=== PATIENT | female | born 1950 | race Caucasian/White ===

== ENCOUNTER 2017-05-31 09:59 | Day surgery (SDC) | payer MEDICARE, OTHER ==
[~2017-05-31 09:59] MED LIST: RINGERS SOLUTION,LACTATED 1,000 ML IV PRN; ceFAZolin SODIUM 1 GM VIAL IV PRN
[2017-05-31] MEDS ORDERED: RINGERS SOLUTION,LACTATED 1,000 ML IV ONE (10:45)
[2017-05-31] MEDS ORDERED: BUPIVACAINE HCL 50 ML VIAL IJ ONE ×2 (12:20)
--- NOTE | 2017-05-31 13:10 | OR ---
Operative Report - Dictated Report Narrative: Date: 05/31/2017 Surgeon: Pro Navarro M.D. Director Of Epidemiology: Agapito Moulton PA-C Preoperative diagnosis: Painful retained implants left ankle Postoperative diagnosis: Painful retained implants left ankle Operation: 1 - Removal of deep implants left medial and lateral malleolus 2 - Intraoperative interpretation of x-rays Retained implants: None Anesthesia: General plus local Tourniquet time: 33 Minutes at 250 mmHg Estimated blood loss: Minimal Drains: None Specimen: Implants for return the patient Complications: None Indications: Mrs. Christie is a 66 -year-old female who previously underwent open reduction internal fixation of left bimalleolar ankle fracture and subsequently developed pain related to the implants. They've gone on to heal the fracture however had notable symptoms related to the implants and wished to have these removed.. They were seen in the clinic and discuss the options for treatment. She wished to proceed with surgical removal of deep implants. The risks and benefits alternatives were discussed. Risks of , blood clots, bleeding, infection, nerve/tendon/blood vessel injury, persistent pain, wound complications, and need for additional procedures were discussed. Consent was obtained in the clinic. Procedure: After marking the correct extremity in the preoperative holding area, the patient was taken to the operating room. A timeout was performed. IV antibiotics consisting of Ancef were administered. Adequate anesthesia was placed. The extremity was then prepped and draped in standard sterile fashion. Utilizing the prior incision, sharp dissection was carried through the skin after exsanguinating extremity and inflating tourniquet. Careful dissection was carried down to the implants. The implants were then removed without complication. There did not appear to be any complications related to the fracture nor any signs of infection. Once all the implants were removed, the wound was thoroughly irrigated. A prominent bone was removed and the soft tissues were closed with 3-0 and 4-0 nylon. Final images were obtained with mini C-arm. Sterile dressings of Xeroform, 4 x 4, soft roll, Coban. 0.5% Marcaine without epinephrine was infused into the skin edges prior to placing dressings. All sponge, needle, sharp, and instrument counts were correct prior to closing the wound. The patient was awoken and transferred to the postanesthesia care in stable condition.
[2017-05-31] MEDS ORDERED: RINGERS SOLUTION,LACTATED 1,000 ML IV PRN (13:51)
[2017-05-31] MEDS ORDERED: ACETAMINOPHEN 500 MG TABLET PO PRN (13:53)
[2017-05-31 15:01] VITALS: BP 122/54
== END 2017-05-31 10:00 | disposition home or self-care (01) ==
LOC: AMB 09:59
PROVIDERS: ATTEND Orthopaedic Surgery
PROC: 0QPK04Z Removal of Internal Fixation Device from Left Fibula, Open Approach (ICD-10-PCS; principal; 2017-05-31 13:45)
DX: T84.84XA Pain due to internal orthopedic prosthetic devices, implants and grafts, initial encounter (principal); I11.0 Hypertensive heart disease with heart failure; I50.9 Heart failure, unspecified; I48.91 Unspecified atrial fibrillation; I25.10 Atherosclerotic heart disease of native coronary artery without angina pectoris; E03.9 Hypothyroidism, unspecified; J45.20 Mild intermittent asthma, uncomplicated; F41.1 Generalized anxiety disorder; Z87.891 Personal history of nicotine dependence; Z68.27 Body mass index [BMI] 27.0-27.9, adult

== ENCOUNTER 2018-12-05 09:06 | Observation (INO) ==
[2018-12-05 09:28] LABS: Hematocrit 36.6 % (37.0-47.0); Hemoglobin 11.8 gm/dL (12.5-16.0); Mean Cell Volume 96.3 fl (78-100); Mean Corpuscular Hemoglobin 31.1 pg (27-31); Mean Corpuscular Hgb Conc 32.2 g/dl (32-36); Mean Platelet Volume 9.7 fl (8-12.5); Neutrophil # 5.4 K/mm3 (1.3-6.0); Neutrophil % 75.2 % (42-75.0); Platelet Count 224 K/mm3 (150-450); Red Cell Distribution Width 13.4 % (11.5-14.0); White Blood Count 7.2 K/mm3 (4.0-10.5)
[2018-12-05 09:36] LABS: INR 1.85 INR (0.90-1.10); Partial Thrombolplastin Time 27.5 Seconds (24-32); Prothrombin Time (Patient) 18.6 Seconds (9.0-11.0)
[2018-12-05 09:44] LABS: Troponin I 0.032 ng/mL (0.00-0.10)
[2018-12-05 09:46] LABS: Anion Gap 16.8 mmol/L (6.8-13.8); BUN/Creatinine Ratio 31.4 (9.0-21.6); Bilirubin, Total 0.8 mg/dL (0.0-1.1); Ca. Corrected For Albumin 8.6 mg/dL (8.4-10.2); Calcium * 8.9 mg/dL (7.9-10.9); Carbon Dioxide 23.7 mmol/L (24-32.6); Potassium 4.5 mmol/L (3.4-4.6); Total Protein 7.5 gm/dL (6.2-8.2)
[2018-12-05] MEDS ORDERED: FUROSEMIDE 10 MG/ML VIAL IV ONE (09:55)
--- NOTE | 2018-12-05 10:01 | ERNOTE ---
<KayleePeg arellano - Last Filed: 12/05/18 10:27> Chest Pain/Cardiac HPI Date of Service: 12/05/18 Chief Complaint: Chest Pain Time Seen by Provider: 12/05/18 09:50 Source: patient Exam Limitations: clinical condition Immunizations: IMMUNIZATION HX Immunizations Up to Date No History of Influenza Vaccine Yes Hx Pneumococcal Vaccination No Allergies/Adverse Reactions: Allergies caffeine Adverse Reaction (Mild, Verified 12/05/18 09:18) ANXIETY iodine Adverse Reaction (Mild, Verified 12/05/18 09:18) BURNING AND BLISTERING OF SKIN cat dander Adverse Reaction (Unknown, Verified 12/05/18 09:18) asthma Home Medications: HOME MEDICATIONS Albuterol Sulfate [Ventolin HFA] 2 puff INHALATION Q6H PRN 10/02/16 [Last Taken Unknown] Pravastatin Sodium [Pravachol] 80 mg PO HS 10/02/16 [Last Taken Unknown] Acetaminophen [Tylenol] 500 mg PO PRN PRN 05/27/17 [Last Taken Unknown] Albuterol Sulfate/Ipratropium [Duoneb 2.5-0.5MG/3ML Soln] 3 ml INHALATION QID 05/27/17 [Last Taken Unknown] Amiodarone HCl [Cordarone] 200 mg PO MOTUWETHFR 05/27/17 [Last Taken Unknown] Cholecalciferol [Vitamin D] 5,000 unit PO DAILY 05/27/17 [Last Taken Unknown] levothyroxine 25 mcg tablet 25 mcg PO DAILY #30 tab 06/04/18 [Last Taken Unknown] lisinopril 10 mg tablet 10 mg PO BID #60 tab 06/04/18 [Last Taken Unknown] omeprazole 20 mg capsule,delayed release 40 mg PO DAILY #60 cap 07/24/18 [Last Taken Unknown] alprazolam 1 mg tablet 1 mg PO TID PRN #30 tab 10/08/18 [Last Taken Unknown] furosemide 40 mg tablet 40 mg PO DAILY 11/18/18 [Last Taken Unknown] warfarin 1 mg tablet 2 mg PO .QMF #90 tab 11/27/18 [Last Taken Unknown] warfarin 1 mg tablet 3 mg PO .TuWThSASun #90 tab 11/27/18 [Last Taken Unknown] Narrative: 68 year old female presenting with dyspnea, she does have a history of CHF and A Fib she is on Amiodorone. She is presenting with dyspnea. She is due to have mitral valve replacement in [place]. She had a recent Angio in [place] that was negative. She is on coumadin. She has a home blood pressure monitor that read a fib. She does have a history of CHF. Review of Systems - Review of Systems Constitutional: Present: See HPI EYE: Present: no symptoms reported ENT: Present: no symptoms reported Respiratory: Present: shortness of breath Cardiology: Present: chest pain, palpitations Gastrointestinal/Abdominal: Present: no symptoms reported Genitourinary: Present: no symptoms reported Musculoskeletal: Present: no symptoms reported Skin: Present: no symptoms reported Neurological: Present: no symptoms reported Endocrine: Present: no symptoms reported Hematologic/Lymphatic: Present: no symptoms reported Psych: Present: no symptoms reported Medical History (Last Reviewed 12/05/18 @ 09:58 by Peg Page MD) Hypothyroidism (Chronic) Onset Date: ~07/25/16 Hypertension (Chronic) Onset Date: Unknown Congestive heart failure (CHF) (Chronic) Onset Date: Unknown Congenital heart disease (Chronic) Onset Date: Unknown CAD (coronary artery disease) (Chronic) Onset Date: Unknown Asthma (Chronic) Onset Date: ~05/18/13 Anxiety disorder (Chronic) Onset Date: ~06/30/13 Afib (Chronic) Onset Date: ~05/14/13 history S/P AV canal with split MV repair at age 14- Heart failure symptoms May 2013 Fracture, fibula Onset Date: ~09/2016 GI bleed Onset Date: ~09/08/16 Malleolar fracture Onset Date: ~09/2016 Mitral valve stenosis Onset Date: Unknown Myocardial infarction Onset Date: Unknown Surgical History: Surgical History (Last Reviewed 12/05/18 @ 09:58 by Peg Page MD) History of ankle surgery Onset Date: ~10/03/16 Dr Navarro: ORIF left medial malleolus and fibula fx, closed reduction posterior malleolus ankle fx History of cardioversion Onset Date: ~05/18/13 History of endometrial ablation Onset Date: ~1995 History of esophagogastroduodenoscopy (EGD) Onset Date: ~09/09/16 Bagan- clotest negative. Acutely ulcerated and bleeding hyperplastic polyp History of open heart surgery Onset Date: ~04/1965 History of total hysterectomy with bilateral salpingo-oophorectomy (BSO) Onset Date: ~1995 Hx laparoscopic cholecystectomy Onset Date: ~1995 Hx of carpal tunnel repair Onset Date: ~1995 Hx of dilation and curettage Onset Date: ~1980 1977 & 1980 Hx of eye surgery Onset Date: ~1958 Hx of mitral valve repair Onset Date: ~04/1965 Hx of tubal ligation Onset Date: ~1981 Family History: Family History (Last Reviewed 12/05/18 @ 09:58 by Peg Page MD) Father Cancer esophageal Mother Cancer adenocarcinoma Social History: Preferred Language Yi Smoking Status Never smoker Abuse History No History of abuse Psych History Hx of Anxiety,Currently on Meds Alcohol Use none (Last Updated 11/18/18 @ 11:31 by Marti White MD) No Social History Section defined Physical Exam - Physical Exam General Appearance: Present: wd/wn, alert, no apparent distress Head Exam: Present: normal inspection, no evidence of injury Eye Exam: Normal inspection: bilateral, PERRL: bilateral, EOMI: bilateral Ears, Nose, Throat: Present: normal ENT inspection, normal pharynx Neck: Present: normal inspection, nontender Respiratory: Present: no respiratory distress, no accessory muscle use, decreased breath sounds, crackles, rales Cardiovascular/Chest: Present: irregularly irregular Peripheral Pulses: N=norm/S=strong/W=weak/B=bound/A=absent: Carotid (R): Normal, Carotid (L): Normal, Radial (R): Normal Gastrointestinal/Abdominal: Present: normal bowel sounds, nontender, nondistended, soft, no organomegaly Back Exam: Present: normal inspection, normal range of motion, no CVA tenderness, no vertebral tenderness Extremity Exam: Present: normal inspection, non-tender, normal range of motion, no edema Neurological Exam: Present: alert, oriented, normal mood/affect, no motor/sensory deficits Skin Exam: Present: normal color, warm/dry Lymphatic Exam: Present: no adenopathy Progress - Results and Orders Patient's Lab Results:: I have reviewed the patient's lab results. - Vital Signs Patient's Vital Signs:: I have reviewed the patient's vital signs. Vital Signs: Vital Signs 12/05/18 09:07 12/05/18 09:17 Temperature 36.1 C Pulse Rate 96 99 Respiratory Rate 13 O2 Sat by Pulse Oximetry 99 - EKG EKG #1 EKG: atrial fibrillation - 108, other - X-Ray X-Ray #1 X-Ray: chest - CHF - Progress/Reassessment Chief Complaint: Chest Pain Progress:: Improved - Diuresed with Lasix - Transfer of Care Physician Sign Out: Peg Page Receiving Physician: Dameon Rogers Expected Disposition: Admit - awaiting Dr. Bey Departure Clinical Impression: Congestive heart failure (CHF) - Departure Disposition: Still a patient Condition: Fair <Dameon Rogers - Last Filed: 12/05/18 11:02> Chest Pain/Cardiac HPI Immunizations: IMMUNIZATION HX Immunizations Up to Date No History of Influenza Vaccine Yes Hx Pneumococcal Vaccination No Medical History (Last Reviewed 12/05/18 @ 09:58 by Peg Page MD) Hypothyroidism (Chronic) Onset Date: ~07/25/16 Hypertension (Chronic) Onset Date: Unknown Congestive heart failure (CHF) (Chronic) Onset Date: Unknown Congenital heart disease (Chronic) Onset Date: Unknown CAD (coronary artery disease) (Chronic) Onset Date: Unknown Asthma (Chronic) Onset Date: ~05/18/13 Anxiety disorder (Chronic) Onset Date: ~06/30/13 Afib (Chronic) Onset Date: ~05/14/13 history S/P AV canal with split MV repair at age 14- Heart failure symptoms May 2013 Fracture, fibula Onset Date: ~09/2016 GI bleed Onset Date: ~09/08/16 Malleolar fracture Onset Date: ~09/2016 Mitral valve stenosis Onset Date: Unknown Myocardial infarction Onset Date: Unknown Surgical History: Surgical History (Last Reviewed 12/05/18 @ 09:58 by Peg Page MD) History of ankle surgery Onset Date: ~10/03/16 Dr Navarro: ORIF left medial malleolus and fibula fx, closed reduction posterior malleolus ankle fx History of cardioversion Onset Date: ~05/18/13 History of endometrial ablation Onset Date: ~1995 History of esophagogastroduodenoscopy (EGD) Onset Date: ~09/09/16 Bagan- clotest negative. Acutely ulcerated and bleeding hyperplastic polyp History of open heart surgery Onset Date: ~04/1965 History of total hysterectomy with bilateral salpingo-oophorectomy (BSO) Onset Date: ~1995 Hx laparoscopic cholecystectomy Onset Date: ~1995 Hx of carpal tunnel repair Onset Date: ~1995 Hx of dilation and curettage Onset Date: ~1980 1977 & 1980 Hx of eye surgery Onset Date: ~1958 Hx of mitral valve repair Onset Date: ~04/1965 Hx of tubal ligation Onset Date: ~1981 Family History: Family History (Last Reviewed 12/05/18 @ 09:58 by Peg Page MD) Father Cancer esophageal Mother Cancer adenocarcinoma Social History: Preferred Language Yi Smoking Status Never smoker Abuse History No History of abuse Psych History Hx of Anxiety,Currently on Meds Alcohol Use none (Last Updated 11/18/18 @ 11:31 by Marti White MD) No Social History Section defined Progress - Date and Time Seen: Date and Time: 12/05/18 11:02 I took over the patient from Dr. Page about 10:30 AM. The workup had been completed and he was waiting for a call from Dr. Bey, who is busy in the critical care unit. I spoke with Dr. Bey and he accepted the patient. The x-ray and labs were reviewed. I talked with the patient and she is sitting comfortably in a wheelchair after having returned from the bathroom. She had no questions for me. - Vital Signs Vital Signs: Vital Signs 12/05/18 09:07 12/05/18 09:17 12/05/18 09:45 Temperature 36.1 C Pulse Rate 96 99 108 H Respiratory Rate 13 13 Blood Pressure 113/76 96/54 O2 Sat by Pulse Oximetry 99 96 12/05/18 10:05 12/05/18 10:11 12/05/18 10:20 Temperature Pulse Rate 89 96 95 Respiratory Rate 17 17 Blood Pressure 95/52 96/52 93/63 O2 Sat by Pulse Oximetry 97 95 12/05/18 10:46 Temperature Pulse Rate 97 Respiratory Rate 12 Blood Pressure 103/54 O2 Sat by Pulse Oximetry 96
[2018-12-05] MEDS ORDERED: LISINOPRIL 10 MG TABLET PO ONE (22:48)
[2018-12-05] MEDS ORDERED: AMIODARONE HCL 200 MG TABLET PO ONE (22:49)
[2018-12-05] MEDS ORDERED: ROSUVASTATIN CALCIUM 10 MG TABLET PO ONE (22:51)
[2018-12-05] MEDS ORDERED: WARFARIN SODIUM 3 MG TABLET PO ONE (22:53)
[2018-12-05] MEDS ORDERED: WARFARIN SODIUM 1 MG TABLET ONE (23:13)
[2018-12-06] MEDS ORDERED: FUROSEMIDE 10 MG/ML VIAL IV ONE (06:30)
[2018-12-06 07:44] LABS: Albumin * 3.6 gm/dl (3.4-5.0); Anion Gap 15.9 mmol/L (6.8-13.8); BUN/Creatinine Ratio 32.7 (9.0-21.6); Bilirubin, Total 0.7 mg/dL (0.0-1.1); Potassium 4.9 mmol/L (3.4-4.6); Total Protein 6.9 gm/dL (6.2-8.2)
--- NOTE | 2018-12-06 10:22 | HP ---
Chief Complaint - Chief Complaint Date of Service: 12/05/18 Time of Service: 16:00 Chief Complaint: Shortness of breath History of Present Illness: Ellie is a 68 yo female with severe aortic stenosis, atrial fibrillation, and chronic diastolic CHF that presented to the [facility] ER with shortness of breath. She reports she has been sick with bronchitis recent and has not be as active. She also admits to occasionally eating more salt than she should. She does not weight herself daily. She denies any recent weight change. She reports the only medication change has been the recent adjustment in her coumadin. She denies chest pain. Medical History (Last Updated 12/05/18 @ 11:33 by Leona Hilton RN) Hypothyroidism (Chronic) Onset Date: ~07/25/16 Hypertension (Chronic) Onset Date: Unknown Congestive heart failure (CHF) (Chronic) Onset Date: Unknown Congenital heart disease (Chronic) Onset Date: Unknown CAD (coronary artery disease) (Chronic) Onset Date: Unknown Asthma (Chronic) Onset Date: ~05/18/13 Anxiety disorder (Chronic) Onset Date: ~06/30/13 Afib (Chronic) Onset Date: ~05/14/13 history S/P AV canal with split MV repair at age 14- Heart failure symptoms May 2013 Fracture, fibula Onset Date: ~09/2016 GI bleed Onset Date: ~09/08/16 Malleolar fracture Onset Date: ~09/2016 Mitral valve stenosis Onset Date: Unknown Surgical History: Surgical History (Last Reviewed 12/05/18 @ 11:34 by Leona Hilton RN) History of ankle surgery Onset Date: ~10/03/16 Dr Navarro: ORIF left medial malleolus and fibula fx, closed reduction posterior malleolus ankle fx History of cardioversion Onset Date: ~05/18/13 History of endometrial ablation Onset Date: ~1995 History of esophagogastroduodenoscopy (EGD) Onset Date: ~09/09/16 Bagan- clotest negative. Acutely ulcerated and bleeding hyperplastic polyp History of open heart surgery Onset Date: ~04/1965 History of total hysterectomy with bilateral salpingo-oophorectomy (BSO) Onset Date: ~1995 Hx laparoscopic cholecystectomy Onset Date: ~1995 Hx of carpal tunnel repair Onset Date: ~1995 Hx of dilation and curettage Onset Date: ~1980 1977 & 1980 Hx of eye surgery Onset Date: ~1958 Hx of mitral valve repair Onset Date: ~04/1965 Hx of tubal ligation Onset Date: ~1981 Family History: Family History (Last Reviewed 12/05/18 @ 11:34 by Leona Hilton RN) Father Cancer esophageal Mother Cancer adenocarcinoma Social History: Patient Lives/Resources with son Utilized Occupation fish and wildlife technician Preferred Language Portuguese Do you have any amish or Yes: Amish cultural preference? Smoking Status Never smoker Have you smoked in the past 12 No months Abuse History No History of abuse Psych History Hx of Anxiety,Currently on Meds Alcohol Use none (Last Updated 11/18/18 @ 11:31 by Marti White MD) No Social History Section defined Review Of Systems (GEN) - Review of Systems Generalized/Overall Review: Present: Weakness, Fatigue. Absent: Chills, Fever EENTM: Present: No Symptoms Reported Respiratory: Present: Shortness of Breath. Absent: Cough, Wheezing Cardiac: Present: Edema. Absent: Chest Pain, Palpitations, Syncope Abdominal: Absent: Nausea, Vomiting, Abdominal Pain Genitourinary: Present: No Symptoms Reported Musculoskeletal: Present: No Symptoms Reported Neurological: Present: No Symptoms Reported Skin: Present: No Symptoms Reported Endocrine: Present: No Symptoms Reported Immunizations: IMMUNIZATION HX Immunizations Up to Date No History of Influenza Vaccine Yes Hx Pneumococcal Vaccination No Allergies/Adverse Reactions: Allergies Allergy/AdvReac Type Severity Reaction Status Date / Time caffeine AdvReac Mild ANXIETY Verified 12/05/18 11:35 iodine AdvReac Mild BURNING Verified 12/05/18 11:35 AND BLISTERING OF SKIN cat dander AdvReac Unknown asthma Verified 12/05/18 11:35 Home Medications: HOME MEDICATIONS Albuterol Sulfate [Ventolin HFA] 2 puff INHALATION Q6H PRN 10/02/16 [Last Taken Unknown] Pravastatin Sodium [Pravachol] 80 mg PO HS 10/02/16 [Last Taken Unknown] Acetaminophen [Tylenol] 500 mg PO Q4H PRN 05/27/17 [Last Taken Unknown] Albuterol Sulfate/Ipratropium [Duoneb 2.5-0.5MG/3ML Soln] 3 ml INHALATION QID PRN 05/27/17 [Last Taken Unknown] Amiodarone HCl [Cordarone] 200 mg PO MOTUWETHFR 05/27/17 [Last Taken Unknown] Cholecalciferol [Vitamin D] 2,000 unit PO DAILY 05/27/17 [Last Taken Unknown] levothyroxine 25 mcg tablet 25 mcg PO DAILY #30 tab 06/04/18 [Last Taken Unknown] lisinopril 10 mg tablet 10 mg PO BID #60 tab 06/04/18 [Last Taken Unknown] omeprazole 20 mg capsule,delayed release 40 mg PO DAILY #60 cap 07/24/18 [Last Taken Unknown] alprazolam 1 mg tablet 1 mg PO TID PRN #30 tab 10/08/18 [Last Taken Unknown] furosemide 40 mg tablet 40 mg PO DAILY 11/18/18 [Last Taken Unknown] Warfarin Sodium [Coumadin] 3 mg PO .SUMOWEFR 12/05/18 [Last Taken Unknown] Warfarin Sodium [Jantoven] 2 mg PO .TUTHSA 12/05/18 [Last Taken Unknown] Exam - Exam Vital Signs: Vital Signs - Last Taken Temp 36.4 C 12/06/18 07:34 Pulse 84 12/06/18 07:34 Resp 18 12/06/18 07:34 BP 89/56 L 12/06/18 07:34 Pulse Ox 98 12/06/18 07:34 Constitutional: Present: Alert, Oriented x3, Cooperative ENT Exam: Present: hearing grossly normal Eye Exam: bilateral eye: normal inspection Respiratory: Present: no respiratory distress, crackles Cardiovascular/Chest: Present: irregularly irregular Abdomen: Present: Normal bowel sounds, soft, nontender, nondistended Skin Exam: Present: normal color, warm/dry, no cyanosis Neurologic: Present: alert, normal mood/affect, oriented x 3 Appearance: Present: appropriate appearance, appropriate insight Eye contact: Present: cooperative, good eye contact, normal speech Thoughts: Present: normal thought pattern, no apparent hallucination Diagnostic Studies: Abnormal Lab Results 12/06/18 Range/Units 07:05 Potassium 4.9 H (3.4-4.6) mmol/L Anion Gap 15.9 H (6.8-13.8) mmol/L BUN 50 H (3-23) mg/dL Creatinine 1.53 H (0.4-1.4) mg/dL Est GFR (Non-Af Amer) 36 L (60-130) mL/min BUN/Creatinine Ratio 32.7 H (9.0-21.6) Random Glucose 139 H (70-110) mg/dL ALT 15 L (19-67) U/L Laboratory Results WBC 7.2 K/mm3 (4.0-10.5) 12/05/18 09:21 RBC 3.80 M/mm3 (4.2-5.4) L 12/05/18 09:21 Hgb 11.8 gm/dL (12.5-16.0) L 12/05/18 09:21 Hct 36.6 % (37.0-47.0) L 12/05/18 09:21 MCV 96.3 fl (78-100) 12/05/18 09:21 MCH 31.1 pg (27-31) H 12/05/18 09:21 MCHC 32.2 g/dl (32-36) 12/05/18 09:21 RDW 13.4 % (11.5-14.0) 12/05/18 09:21 Plt Count 224 K/mm3 (150-450) 12/05/18 09:21 MPV 9.7 fl (8-12.5) 12/05/18 09:21 Immature Gran % (Auto) 0.40 % (0.001-0.429) 12/05/18 09:21 Immature Gran # (Auto) 0.03 K/mm3 (0.000-0.0310) 12/05/18 09:21 Neutrophils % 75.2 % (42-75.0) H 12/05/18 09:21 Lymphocytes % 17.6 % (20-51) L 12/05/18 09:21 Monocytes % 6.1 % (0.0-9) 12/05/18 09:21 Eosinophils % 0.4 % (0.0-3.0) 12/05/18 09:21 Basophils % 0.3 % (0.0-1.0) 12/05/18 09:21 Nucleated RBC % 0.0 k/mm3 (0-1) 12/05/18 09:21 Neutrophils # 5.4 K/mm3 (1.3-6.0) 12/05/18 09:21 Lymphocytes # 1.27 k/mm3 (1.5-3.5) L 12/05/18 09:21 Monocytes # 0.4 k/mm3 (0.0-1.0) 12/05/18 09:21 Eosinophils # 0.0 k/mm3 (0.0-0.7) 12/05/18 09:21 Absolute Basophils 0.0 k/mm3 (0.0-0.1) 12/05/18 09:21 PT 18.6 Seconds (9.0-11.0) H 12/05/18 09:21 INR (Anticoag Therapy) 1.85 INR (0.90-1.10) H 12/05/18 09:21 PTT ([place]) 27.5 Seconds (24-32) 12/05/18 09:21 Sodium 136 mmol/L (132-142) 12/06/18 07:05 Plasma Sodium 137 mmol/L (130-142) 12/06/18 07:05 Potassium 4.9 mmol/L (3.4-4.6) H 12/06/18 07:05 Chloride 100 mmol/L (97-106) 12/06/18 07:05 Carbon Dioxide 25.0 mmol/L (24-32.6) 12/06/18 07:05 Anion Gap 15.9 mmol/L (6.8-13.8) H 12/06/18 07:05 BUN 50 mg/dL (3-23) H 12/06/18 07:05 Creatinine 1.53 mg/dL (0.4-1.4) H 12/06/18 07:05 Est GFR (Non-Af Amer) 36 mL/min (60-130) L 12/06/18 07:05 BUN/Creatinine Ratio 32.7 (9.0-21.6) H 12/06/18 07:05 Random Glucose 139 mg/dL (70-110) H 12/06/18 07:05 Calcium 9.0 mg/dL (7.9-10.9) 12/06/18 07:05 Calcium Adj for Albumin 9.0 mg/dL (8.4-10.2) 12/06/18 07:05 Total Bilirubin 0.7 mg/dL (0.0-1.1) 12/06/18 07:05 AST 22 U/L (0-48) 12/06/18 07:05 ALT 15 U/L (19-67) L 12/06/18 07:05 Alkaline Phosphatase 81 U/L (50-170) 12/06/18 07:05 Troponin I 0.034 ng/mL (0.00-0.10) 12/05/18 13:14 B-Natriuretic Peptide 9024 pg/mL (5-325) H 12/05/18 09:21 Total Protein 6.9 gm/dL (6.2-8.2) 12/06/18 07:05 Albumin 3.6 gm/dl (3.4-5.0) 12/06/18 07:05 Assessment/Plan - Narrative Narrative: Ellie will be admitted to observation for shortness of breath with acute on chronic diastolic CHF based on shortness of breath, lower extremity edema, and BNP of 9k. Will give IV lasix at 40mg and monitor response. There is no respiratory failure/hypoxia at this time. Anticipate home discharge tomorrow. - Assessment/Plan (1) Acute on chronic diastolic CHF (congestive heart failure) Problem: Acute (2) Atrial fibrillation Problem: Chronic
--- NOTE | 2018-12-06 10:47 | DS ---
(1) Acute on chronic diastolic CHF (congestive heart failure) Problem: Resolved (2) Atrial fibrillation Problem: Chronic Description of Stay: Ellie is a 68 yo female admitted to observation for shortness of breath that was felt to be from an exacerbation of her diastolic CHF. She was given IV lasix 40mg about 12 hours apart and diursed well. She felt better and ready for home discharge. I suspect that she had an exacerbation due to her recent bronchitis that had her activity decreased and her admission that she has been eating more salt than she should. I educated her on monitoring her weight daily. Her dose of 40mg appears to work for her but she also admits to not taking it if she will be out and about. I encouraged her to take this earlier or when she returns. She will be given enough lasix to use daily and she may occasionally take it twice a day, at least 6 hours apart if she is monitoring her weight and notices an increase. I do not believe she will use this twice a day often. She may follow up with her PCP and r&d engineer. Procedures Performed: none Results and Findings: Lab Pending Results 12/05/18 09:21: WBC 7.2, RBC 3.80 L, Hgb 11.8 L, Hct 36.6 L, MCV 96.3, MCH 31.1 H, MCHC 32.2, RDW 13.4, Plt Count 224, MPV 9.7, Immature Gran % (Auto) 0.40, Immature Gran # (Auto) 0.03, Neutrophils % 75.2 H, Lymphocytes % 17.6 L, Monocytes % 6.1, Eosinophils % 0.4, Basophils % 0.3, Nucleated RBC % 0.0, Neutrophils # 5.4, Lymphocytes # 1.27 L, Monocytes # 0.4, Eosinophils # 0.0, Absolute Basophils 0.0 12/05/18 09:21: PT 18.6 H, INR (Anticoag Therapy) 1.85 H, PTT (Pike) 27.5 12/05/18 09:21: Sodium 137, Plasma Sodium 138, Potassium 4.5, Chloride 101, Carbon Dioxide 23.7 L, Anion Gap 16.8 H, BUN 55 H D, Creatinine 1.75 H, Est GFR (Non-Af Amer) 31 L, BUN/Creatinine Ratio 31.4 H, Random Glucose 146 H, Calcium 8.9, Calcium Adj for Albumin 8.6, Total Bilirubin 0.8, AST 26, ALT 19, Alkaline Phosphatase 90, Troponin I 0.032, B-Natriuretic Peptide 9024 H, Total Protein 7.5, Albumin 4.0 12/05/18 13:14: Troponin I 0.034 12/06/18 07:05: Sodium 136, Plasma Sodium 137, Potassium 4.9 H, Chloride 100, Carbon Dioxide 25.0, Anion Gap 15.9 H, BUN 50 H, Creatinine 1.53 H, Est GFR (Non-Af Amer) 36 L, BUN/Creatinine Ratio 32.7 H, Random Glucose 139 H, Calcium 9.0, Calcium Adj for Albumin 9.0, Total Bilirubin 0.7, AST 22, ALT 15 L, Alkaline Phosphatase 81, Total Protein 6.9, Albumin 3.6 Discharge Location: Home Disposition: Home self-care Condition: Good Discharge Activity: Activity as tolerated Discharge Diet: Low salt Referrals: Marti White MD [Primary Care Provider] - One Week Lola Chow DO [Associate] - (Next available) Problem Oriented Discharge Instructions to Patient/Family: CHF Patient Instructions Additional Patient Instructions (free text): -Please make TCM appointment unless alf discharge. Thank you! Darlyn @ [phone]. Prescriptions (Any new or edited meds): Furosemide [Lasix] 40 mg PO BID PRN #45 tablet PRN Reason: edema/weight gain Complete Home Medications List: Complete Home Medication List: Albuterol Sulfate [Ventolin HFA] 2 puff INHALATION Q6H PRN 10/02/16 Pravastatin Sodium [Pravachol] 80 mg PO HS 10/02/16 Acetaminophen [Tylenol] 500 mg PO Q4H PRN 05/27/17 Albuterol Sulfate/Ipratropium [Duoneb 2.5-0.5MG/3ML Soln] 3 ml INHALATION QID PRN 05/27/17 Amiodarone HCl [Cordarone] 200 mg PO [id number] 05/27/17 Cholecalciferol [Vitamin D] 2,000 unit PO DAILY 05/27/17 levothyroxine 25 mcg tablet 25 mcg PO DAILY #30 tab 06/04/18 lisinopril 10 mg tablet 10 mg PO BID #60 tab 06/04/18 omeprazole 20 mg capsule,delayed release 40 mg PO DAILY #60 cap 07/24/18 alprazolam 1 mg tablet 1 mg PO TID PRN #30 tab 10/08/18 Warfarin Sodium [Coumadin] 3 mg PO .SUMOWEFR 12/05/18 Warfarin Sodium [Jantoven] 2 mg PO .TUTHSA 12/05/18 Furosemide [Lasix] 40 mg PO BID PRN #45 tablet 12/06/18
[2018-12-06 14:15] VITALS: BP 97/61
== END 2018-12-06 14:30 | disposition home or self-care (01) ==
LOC: ER 09:06 → MS 09:06
PROVIDERS: ADMIT Family Medicine; ATTEND Family Medicine
CPT/HCPCS: 36415; 71020; 71046; 80053; 83519; 83880; 84484; 85025; 85610; 85730; 93005; 96374; 96375; 99285; G0378